=== PATIENT | male | born 1940 | race Caucasian/White ===

== ENCOUNTER 2022-02-26 13:29 | Inpatient (IN) | payer MEDICARE ==
[~2022-02-26] VITALS: Ht 177.8 cm; Wt 104.3 kg
[2022-02-26 14:53] LABS: BASOPHILS % 0.6 % (0.0-1.0); EOSINOPHILS # (AUTO) 0.2 (0.0-0.4); EOSINOPHILS % 2.6 % (0.0-6.0); HEMOGLOBIN 10.8 g/dL (14.0-18.0); LYMPHOCYTES # (AUTO) 1.7 (1.0-3.2); LYMPHOCYTES % 24.4 % (18.0-39.1); MEAN CORPUSCULAR HEMOGLOBIN 29.4 pg (28-32); MEAN CORPUSCULAR HGB CONC 32.7 g/dL (31-35); MEAN CORPUSCULAR VOLUME 89.9 fL (81-99); MONOCYTES # (AUTO) 0.5 (0.2-0.8); MONOCYTES % 7.2 % (4.4-11.3); NEUTROPHILS # (AUTO) 4.4 (2.1-6.9); NEUTROPHILS % 63.9 % (38.7-80.0); PLATELET COUNT 388 x10e3/uL (140-360); RED BLOOD COUNT 3.67 x10e6/uL (4.3-5.7); RED CELL DISTRIBUTION WIDTH 13.5 % (11.7-14.4)
[2022-02-26 15:00] LABS: INR 1.02; PROTHROMBIN TIME 14.3 seconds (11.9-14.5)
[2022-02-26 15:01] LABS: PARTIAL THROMBOPLASTIN TIME 34.3 seconds (23.8-35.5)
[2022-02-26 15:11] LABS: ALANINE AMINOTRANSFERASE 18 IU/L (0-55); ALBUMIN 3.7 g/dL (3.5-5.0); ALKALINE PHOSPHATASE 69 IU/L (40-150); ANION GAP 18.1 mmol/L (8-16); BLOOD UREA NITROGEN 18 mg/dL (7-26); BUN/CREATININE RATIO 19 (6-25); CARBON DIOXIDE 25 mmol/L (22-29); CHLORIDE 99 mmol/L (98-107); CREATINE KINASE 105 IU/L (30-200); CREATININE, SERUM 0.94 mg/dL (0.72-1.25); GLUCOSE 140 mg/dL (74-118); MAGNESIUM 1.2 MG/DL (1.3-2.1); POTASSIUM 4.1 mmol/L (3.5-5.1); SODIUM 138 mmol/L (136-145)
[2022-02-26] MEDS: ENOXAPARIN SODIUM INJ 100 MG/ML SYR SC SCH (16:15)
[2022-02-26] MEDS ORDERED: ONDANSETRON HCL INJ 2MG/ML 2ML 2 MG/ML VIAL IV PRN ×2 (16:45→17:45)
[2022-02-26] MEDS ORDERED: FUROSEMIDE INJ 10 MG/ML 2 ML VIAL IV ONE (16:45)
[2022-02-26] MEDS ORDERED: MAGNESIUM SULF 1GRAM/DEXTROSE 100 ML IV ONE (16:45)
[2022-02-26 17:29] LABS: CLARITY,URINE CLEAR (CLEAR); COLOR,URINE YELLOW (YELLOW); LEUKOCYTE ESTERASE ,URINE NEGATIVE (NEGATIVE)
[2022-02-26 17:30] LABS: KETONES,URINE NEGATIVE (NEGATIVE); NITRITE,URINE NEGATIVE (NEGATIVE); PROTEIN,URINE DIPSTICK NEGATIVE (NEGATIVE); URINE UROBILINOGEN 0.2 mg/dL (0.2 - 1)
[2022-02-26 17:35] LABS: BACTERIA,URINE FEW /HPF; EPITHELIAL CELLS,URINE FEW /LPF; RBC,URINE 0-5 /HPF (0-5); WBC,URINE (MAN) 0-5 /HPF (0-5)
[2022-02-26] MEDS ORDERED: ACETAMINOPHEN 325 MG TAB PO PRN (17:45)
[2022-02-26] MEDS ORDERED: DOXYCYCLINE HYCLATE TABLET 100 MG TAB PO SCH (17:45)
[2022-02-26] MEDS ORDERED: CLONIDINE HCL 0.1 MG TAB PO PRN (17:45)
[2022-02-26 20:13] LABS: CREATINE KINASE MB 6.2 ng/mL (0-5.0)
[2022-02-26 20:54] VITALS: BP 148/70
[2022-02-26 21:19] VITALS: BP 148/70
[2022-02-26] MEDS ORDERED: ASPIRIN81 MG PO (21:42)
[2022-02-26] MEDS ORDERED: PROBIOTIC & AC1 EACH PO (21:42)
[2022-02-26] MEDS ORDERED: METFORMIN HCL500 M2 PO (21:42)
[2022-02-26] MEDS ORDERED: ATORVASTATIN CA10 MG PO (21:42)
[2022-02-26] MEDS ORDERED: LOSARTAN POTASS25 MG PO (21:42)
[2022-02-26] MEDS ORDERED: B12 ACTIVE1000 MCG PO (21:42)
[2022-02-26] MEDS: DOXYCYCLINE HYCLATE TABLET 100 MG TAB PO SCH (22:44)
[2022-02-27] VITALS (8 sets, daily range): BP systolic 131–143; BP diastolic 63–84
[2022-02-27 02:31] LABS: CREATINE KINASE MB 4.5 ng/mL (0-5.0)
[2022-02-27] MEDS: ENOXAPARIN SODIUM INJ 100 MG/ML SYR SC SCH ×2 (04:24→16:29)
[2022-02-27 05:03] LABS: BASOPHILS # (AUTO) 0.1 (0.0-0.1); EOSINOPHILS # (AUTO) 0.2 (0.0-0.4); EOSINOPHILS % 3.9 % (0.0-6.0); HEMATOCRIT 29.3 % (38.2-49.6); HEMOGLOBIN 9.8 g/dL (14.0-18.0); LYMPHOCYTES # (AUTO) 1.9 (1.0-3.2); LYMPHOCYTES % 33.2 % (18.0-39.1); MEAN CORPUSCULAR HEMOGLOBIN 29.4 pg (28-32); MEAN CORPUSCULAR HGB CONC 33.4 g/dL (31-35); MONOCYTES # (AUTO) 0.6 (0.2-0.8); MONOCYTES % 9.7 % (4.4-11.3); NEUTROPHILS % 51.3 % (38.7-80.0); PLATELET COUNT 343 x10e3/uL (140-360); RED BLOOD COUNT 3.33 x10e6/uL (4.3-5.7); RED CELL DISTRIBUTION WIDTH 13.3 % (11.7-14.4)
[2022-02-27 06:02] LABS: ANION GAP 16.3 mmol/L (8-16); CALCIUM 8.5 mg/dL (8.4-10.2); CHOL/HDL RATIO 2.8 (3.9-4.7); CREATININE, SERUM 0.78 mg/dL (0.72-1.25); POTASSIUM 4.3 mmol/L (3.5-5.1)
[2022-02-27 06:22] LABS: CREATINE KINASE MB 4.1 ng/mL (0-5.0)
[2022-02-27] MEDS: DOXYCYCLINE HYCLATE TABLET 100 MG TAB PO SCH ×2 (08:59→16:29)
[2022-02-27] MEDS: FUROSEMIDE INJ 10 MG/ML 4 ML VIAL IV SCH ×2 (09:00→16:29)
[2022-02-27] MEDS ORDERED: DEXTROSE 50% SYRINGE 50 ML IV PRN (11:15)
[2022-02-27] MEDS ORDERED: IOPAMIDOL 370 MG/ML 100 ML INFUS..BTL INJ ONE (11:17)
[2022-02-27 11:42] LABS: % IRON SATURATION 16 % (15-50); IRON 40 ug/dL (65-175); TOTAL IRON BINDING CAPACITY 245 ug/dL (261-478); TRANSFERRIN 175 mg/dL (174-364)
[2022-02-27] MEDS: INSULIN REGULAR, HUMAN 100 UNIT/1 ML SQ SCH ×3 (12:20→21:00)
[2022-02-27] MEDS: ATORVASTATIN 10 MG TAB PO SCH (21:11)
[2022-02-28] VITALS (8 sets, daily range): BP systolic 106–138; BP diastolic 60–84
[2022-02-28] MEDS: ENOXAPARIN SODIUM INJ 100 MG/ML SYR SC SCH (04:22)
[2022-02-28 05:39] LABS: BASOPHILS % 0.7 % (0.0-1.0); EOSINOPHILS # (AUTO) 0.1 (0.0-0.4); EOSINOPHILS % 2.4 % (0.0-6.0); HEMATOCRIT 33.9 % (38.2-49.6); HEMOGLOBIN 10.8 g/dL (14.0-18.0); LYMPHOCYTES # (AUTO) 1.6 (1.0-3.2); LYMPHOCYTES % 29.3 % (18.0-39.1); MEAN CORPUSCULAR HGB CONC 31.9 g/dL (31-35); MEAN CORPUSCULAR VOLUME 90.9 fL (81-99); MONOCYTES # (AUTO) 0.5 (0.2-0.8); MONOCYTES % 8.8 % (4.4-11.3); NEUTROPHILS # (AUTO) 3.2 (2.1-6.9); NEUTROPHILS % 58.3 % (38.7-80.0); PLATELET COUNT 369 x10e3/uL (140-360); RED BLOOD COUNT 3.73 x10e6/uL (4.3-5.7); RED CELL DISTRIBUTION WIDTH 13.4 % (11.7-14.4)
[2022-02-28 06:14] LABS: ALBUMIN 3.2 g/dL (3.5-5.0); ANION GAP 16.5 mmol/L (8-16); CALCIUM 8.6 mg/dL (8.4-10.2); CREATININE, SERUM 0.86 mg/dL (0.72-1.25); POTASSIUM 3.5 mmol/L (3.5-5.1)
[2022-02-28] MEDS: INSULIN REGULAR, HUMAN 100 UNIT/1 ML SQ SCH ×4 (07:30→20:51)
[2022-02-28] MEDS: FUROSEMIDE INJ 10 MG/ML 4 ML VIAL IV SCH ×2 (09:56→17:05)
[2022-02-28] MEDS: LOSARTAN POTASSIUM 25 MG TAB PO SCH (09:57)
[2022-02-28] MEDS: DOXYCYCLINE HYCLATE TABLET 100 MG TAB PO SCH ×2 (09:57→17:05)
[2022-02-28] MEDS ORDERED: ONDANSETRON HCL 4 MG ORAL DISINTEGRATING TAB PO PRN (14:00)
[2022-02-28] MEDS ORDERED: APIXABAN 5 MG TABLET PO SCH (17:00)
[2022-02-28] MEDS: APIXABAN 5 MG TABLET PO SCH (17:05)
[2022-02-28] MEDS: ATORVASTATIN 10 MG TAB PO SCH (20:52)
[2022-03-01] VITALS: BP 123/73
[2022-03-01 05:26] VITALS: BP 130/80
[2022-03-01 06:09] LABS: ANION GAP 17.5 mmol/L (8-16); CALCIUM 8.7 mg/dL (8.4-10.2); CREATININE, SERUM 0.86 mg/dL (0.72-1.25); POTASSIUM 3.5 mmol/L (3.5-5.1)
[2022-03-01] MEDS: INSULIN REGULAR, HUMAN 100 UNIT/1 ML SQ SCH (07:30)
[2022-03-01 08:00] VITALS: BP 144/69
[2022-03-01 08:25] VITALS: BP 144/69
[2022-03-01] MEDS: FUROSEMIDE INJ 10 MG/ML 4 ML VIAL IV SCH (09:08)
[2022-03-01] MEDS: DOXYCYCLINE HYCLATE TABLET 100 MG TAB PO SCH (09:08)
[2022-03-01] MEDS: LOSARTAN POTASSIUM 25 MG TAB PO SCH (09:08)
[2022-03-01] MEDS: APIXABAN 5 MG TABLET PO SCH (09:08)
[2022-03-01] MEDS ORDERED: ELIQUIS5 MG PO (10:00)
[2022-03-01] MEDS ORDERED: LASIX20 MG PO (10:00)
[2022-03-08] MEDS ORDERED: APIXABAN 5 MG TABLET PO SCH (09:00)
== END 2022-03-01 10:54 | disposition home or self-care (01) | DRG 300 ==
LOC: ER 13:53 → ERHOLD 16:41 → INTOOBSV 16:41 → MED/SURG 20:46 → OBSVTOIN 02-28 11:12
PROVIDERS: ADMIT Internal Medicine; ATTEND Internal Medicine
DX: T81.72XA Complication of vein following a procedure, not elsewhere classified, initial encounter (principal); I13.0 Hypertensive heart and chronic kidney disease with heart failure and stage 1 through stage 4 chronic kidney disease, or unspecified chronic kidney disease; I82.411 Acute embolism and thrombosis of right femoral vein; L03.116 Cellulitis of left lower limb; L03.115 Cellulitis of right lower limb; I50.814 Right heart failure due to left heart failure; Z99.81 Dependence on supplemental oxygen; G47.33 Obstructive sleep apnea (adult) (pediatric); E78.5 Hyperlipidemia, unspecified; N18.9 Chronic kidney disease, unspecified; E66.9 Obesity, unspecified; K58.2 Mixed irritable bowel syndrome; I25.10 Atherosclerotic heart disease of native coronary artery without angina pectoris; E78.00 Pure hypercholesterolemia, unspecified; Z88.3 Allergy status to other anti-infective agents; Z96.641 Presence of right artificial hip joint; Z82.3 Family history of stroke; Z82.49 Family history of ischemic heart disease and other diseases of the circulatory system; Z83.3 Family history of diabetes mellitus; Z20.822 Contact with and (suspected) exposure to COVID-19; Z68.33 Body mass index [BMI] 33.0-33.9, adult
CPT/HCPCS: 0223U; 36415; 71045; 71260; 80048; 80053; 80061; 81001; 82550; 82553; 82948; 83540; 83735; 83880; 84443; 84466; 84484; 85025; 85610; 85730; 87040; 87086; 93005; 93970; 99251; 99284; G0378; J1650; J1817; J1940; J3475; Q9967